=== PATIENT | female | born 1980 | race Caucasian/White ===

== ENCOUNTER 2017-03-10 15:09 | Emergency (ER) | payer MEDICAID ==
--- NOTE | 2017-03-10 15:31 | ER Document Report ---
ED Medical Screen (RME) - General Chief Complaint: L flank pain Stated Complaint: FLANK PAIN Time Seen by Provider: 03/10/17 15:27 Mode of Arrival: Ambulatory Information source: Patient Notes: 37-year-old female presents with complaints of left flank pain since last night. Patient denies a history of pancreatitis admits to drinking one day prior the pain start Patient denies any urinary complaints I have greeted and performed a rapid initial assessment of this patient. A comprehensive ED assessment and evaluation of the patient, analysis of test results and completion of the medical decision making process will be conducted by additional ED providers. PHYSICAL EXAMINATION: GENERAL: Well-appearing, well-nourished and in no acute distress. HEAD: Atraumatic, normocephalic. EYES: Pupils equal round extraocular movements intact, conjunctiva are normal. ENT: Nares patent NECK: Normal range of motion LUNGS: No respiratory distress Musculoskeletal: Normal range of motion NEUROLOGICAL: Normal speech, normal gait. PSYCH: Normal mood, normal affect. SKIN: Surgical incision left mid axillary TRAVEL OUTSIDE OF THE [place] IN LAST 30 DAYS: No - Related Data Allergies/Adverse Reactions: acetaminophen [From NyQuil] Allergy (Verified 03/10/17 15:30) dextromethorphan [From NyQuil] Allergy (Verified 03/10/17 15:30) diphenhydramine [From Benadryl] Allergy (Verified 03/10/17 15:30) doxylamine [From NyQuil] Allergy (Verified 03/10/17 15:30) ketorolac [From Toradol] Allergy (Verified 03/10/17 15:30) pseudoephedrine [From NyQuil] Allergy (Verified 03/10/17 15:30) Past Medical History - Social History Chew tobacco use (# tins/day): No Frequency of alcohol use: Occasional Drug Abuse: None Neurological Medical History: Reports: Hx Migraine Renal/ Medical History: Denies: Hx Peritoneal Dialysis Past Surgical History: Reports: Hx Orthopedic Surgery - Immunizations Hx Diphtheria, Pertussis, Tetanus Vaccination: No Physical Exam - Vital signs Vitals: Temp Pulse Resp BP Pulse Ox 98.3 F 113 H 20 141/78 H 97 03/10/17 15:17 03/10/17 15:17 03/10/17 15:17 03/10/17 15:17 03/10/17 15:17 Course - Vital Signs Vital signs: Temp Pulse Resp BP Pulse Ox 98.3 F 113 H 20 141/78 H 97 03/10/17 15:17 03/10/17 15:17 03/10/17 15:17 03/10/17 15:17 03/10/17 15:17
[2017-03-10 15:53] LABS: APPEARANCE,URINE CLEAR; BILIRUBIN,URINE NEGATIVE (NEGATIVE); GLUCOSE, URINE NEGATIVE (NEGATIVE); KETONES,URINE NEGATIVE (NEGATIVE); LEUKOCYTE ESTERASE,URINE NEGATIVE (NEGATIVE); NITRITE,URINE NEGATIVE (NEGATIVE); PROTEIN,URINE NEGATIVE (NEGATIVE); URINE SPECIFIC GRAVITY 1.003; UROBILINOGEN,URINE NEGATIVE mg/dL (<2.0)
[2017-03-10 16:03] LABS: ABSOLUTE BASOPHILS # (AUTO) 0.1 10^3/uL (0.0-0.2); ABSOLUTE EOSINOPHILS # (AUTO) 0.4 10^3/uL (0.0-0.6); ABSOLUTE LYMPHOCYTES (AUTO) 2.2 10^3/uL (0.5-4.7); ABSOLUTE MONOCYTES (AUTO) 0.8 10^3/uL (0.1-1.4); ABSOLUTE NEUT (AUTO) 6.3 10^3/uL (1.7-8.2); BASOPHILS % (AUTO) 1.1 % (0-2); EOSINOPHILS % (AUTO) 4.5 % (0-6); HEMATOCRIT 38.3 % (36.0-47.0); HEMOGLOBIN 13.5 g/dL (12.0-15.5); HGB HCT DIFFERENCE 2.2; LYMPHOCYTES % (AUTO) 22.5 % (13-45); MEAN CORPUSCULAR HEMOGLOBIN 32.7 pg (27.0-33.4); MEAN CORPUSCULAR HGB CONC 35.1 g/dL (32.0-36.0); MEAN CORPUSCULAR VOLUME 93 fl (80-97); MONOCYTES % (AUTO) 7.7 % (3-13); RED BLOOD COUNT 4.11 10^6/uL (3.72-5.28); RED CELL DISTRIBUTION WIDTH 14.3 % (11.5-14.0); SEGMENTED NEUTROPHILS % (AUTO) 64.2 % (42-78); WHITE BLOOD COUNT 9.9 10^3/uL (4.0-10.5)
[2017-03-10] MEDS ORDERED: MORPHINE SULFATE 10 MG/ML INJ IV PRN (16:13)
[2017-03-10] MEDS ORDERED: ONDANSETRON HCL INJ/PF 4 MG/2 ML SDV IV ONE (16:13)
--- NOTE | 2017-03-10 16:13 | ER Document Report ---
ED General - General Chief Complaint: L flank pain Stated Complaint: FLANK PAIN Time Seen by Provider: 03/10/17 15:27 Mode of Arrival: Ambulatory Information source: Patient Notes: This is a 37-year-old female with a history of cervical disc disease, COPD, GERD , anxiety. The patient presents to the emergency room with left upper quadrant pain, nausea, intermittent diarrhea and vomiting. Patient also states that the pain is worse with deep inspiration. She is a smoker and smokes approximately a half a pack per day. TRAVEL OUTSIDE OF THE [place] IN LAST 30 DAYS: No - HPI Onset: Last week Onset/Duration: Gradual Quality of pain: Dull Severity: Moderate Pain Level: 4 Associated symptoms: Diarrhea, Nausea, Vomiting, Shortness of breath. denies: Chest pain, Fever Exacerbated by: Deep breathing Relieved by: Denies Similar symptoms previously: Yes Recently seen / treated by doctor: Yes - Related Data Allergies/Adverse Reactions: acetaminophen [From NyQuil] Allergy (Verified 03/10/17 15:30) dextromethorphan [From NyQuil] Allergy (Verified 03/10/17 15:30) diphenhydramine [From Benadryl] Allergy (Verified 03/10/17 15:30) doxylamine [From NyQuil] Allergy (Verified 03/10/17 15:30) ketorolac [From Toradol] Allergy (Verified 03/10/17 15:30) pseudoephedrine [From NyQuil] Allergy (Verified 03/10/17 15:30) Home Medications: Current Home Medications Alprazolam [Xanax 0.5 mg Tablet] 0.5 mg PO PRN PRN 03/10/17 [History] Budesonide/Formoterol Fumarate [Symbicort HFA 160-4.5 mcg Inhaler 6 gm] 2 puff IH BID 03/10/17 [History] Bupropion HCl [Bupropion Xl] 300 mg PO QAM 03/10/17 [History] Past Medical History - General Information source: Patient - Social History Smoking Status: Current Every Day Smoker Cigarette use (# per day): Yes - 1 pack per day Chew tobacco use (# tins/day): No Smoking Education Provided: Yes - 5 minutes Frequency of alcohol use: Occasional Drug Abuse: None Lives with: Family Family History: Reviewed & Not Pertinent Patient has suicidal ideation: No Patient has homicidal ideation: No - Past Medical History Cardiac Medical History: Reports: None Pulmonary Medical History: Reports: Hx COPD Neurological Medical History: Reports: Hx Migraine Endocrine Medical History: Reports: None Renal/ Medical History: Reports: None. Denies: Hx Peritoneal Dialysis Malignancy Medical History: Reports: None GI Medical History: Reports: None Musculoskeltal Medical History: Reports Other Skin Medical History: Reports None Psychiatric Medical History: Reports: None Past Surgical History: Reports: Hx Orthopedic Surgery - Immunizations Hx Diphtheria, Pertussis, Tetanus Vaccination: No Review of Systems - Review of Systems Constitutional: denies: Chills, Fever EENT: No symptoms reported Cardiovascular: No symptoms reported Respiratory: See HPI Gastrointestinal: See HPI Genitourinary: No symptoms reported Female Genitourinary: No symptoms reported Musculoskeletal: No symptoms reported Skin: No symptoms reported Hematologic/Lymphatic: No symptoms reported Neurological/Psychological: No symptoms reported Physical Exam - Vital signs Vitals: Temp Pulse Resp BP Pulse Ox 98.3 F 113 H 20 141/78 H 97 03/10/17 15:17 03/10/17 15:17 03/10/17 15:17 03/10/17 15:17 03/10/17 15:17 Notes: Physical exam: GENERAL: 37-year-old female, alert and oriented 3, no acute distress HEAD: Atraumatic, normocephalic. EYES: Pupils equal round and reactive to light, extraocular movements intact, sclera anicteric, conjunctiva are normal. ENT: TMs normal, nares patent, oropharynx clear without exudates. Moist mucous membranes. NECK: Normal range of motion, supple without lymphadenopathy or JVD. LUNGS: Breath sounds clear to auscultation bilaterally and equal. No wheezes rales or rhonchi. HEART: Regular rate and rhythm without murmurs, rubs or gallops. ABDOMEN: Soft, normoactive bowel sounds. No tenderness to palpation. No guarding, no rebound. No masses appreciated. EXTREMITIES: Normal range of motion, no pitting or edema. No clubbing or cyanosis. NEUROLOGICAL: Cranial nerves II through XII grossly intact. Normal speech, normal gait. PSYCH: Normal mood, normal affect. SKIN: Warm, Dry, normal turgor, no rashes or lesions noted. Course - Vital Signs Vital signs: Temp Pulse Resp BP Pulse Ox 97.8 F 84 18 137/75 H 99 03/10/17 20:37 03/10/17 20:37 03/10/17 20:37 03/10/17 20:37 03/10/17 20:37 - Laboratory Result Diagrams: 03/10/17 15:50 03/10/17 15:50 Laboratory results interpreted by me: 03/10/17 03/10/17 15:50 15:50 RDW 14.3 H Sodium 135.0 L - Diagnostic Test Radiology reviewed: Image reviewed, Reports reviewed - CTA of the chest shows no pulmonary emboli. CT of the abdomen is clear. Discharge - Discharge Clinical Impression: Pleurisy Condition: Stable Disposition: HOME, SELF-CARE Instructions: Pleurisy ([facility]) Additional Instructions: Recommendations: As we discussed, try to cut back and actually quit smoking altogether. Continue current medicines. Follow-up with Dr. Desir: Bring a copy of today's lab results, CT reports with you when you see Dr. Desir. Return to the emergency room for worsening pain, shortness of breath or any concerns or getting worse. Prescriptions: Hydromorphone HCl [Dilaudid 2 Mg Tablet] 2 mg PO Q6H PRN #20 tablet PRN Reason: for pain Referrals: BENJAMIN DESIR MD [Primary Care Provider] - Follow up as needed
[2017-03-10 16:29] LABS: ALANINE AMINOTRANSFERASE 28 U/L (9-52); ALBUMIN 4.4 g/dL (3.5-5.0); ALKALINE PHOSPHATASE 69 U/L (38-126); ANION GAP 9 (5-19); ASPARTATE AMINO TRANSFERASE 18 U/L (14-36); BILIRUBIN,DIRECT 0.4 mg/dL (0.0-0.4); BILIRUBIN,TOTAL 0.6 mg/dL (0.2-1.3); BLOOD UREA NITROGEN 11 mg/dL (7-20); CALCIUM 9.6 mg/dL (8.4-10.2); CARBON DIOXIDE 23 mmol/L (22-30); CHLORIDE 103 mmol/L (98-107); CREATININE RESULT 0.83 mg/dL (0.52-1.25); GLUCOSE 92 mg/dL (75-110); LIPASE 60.2 U/L (23-300); TOTAL PROTEIN 7.5 g/dL (6.3-8.2)
--- NOTE | 2017-03-10 17:58 | RADIOLOGY REPORT (SQ) ---
EXAM DESCRIPTION: CTA CHEST COMPLETED DATE/TIME: 03/10/2017 5:40 pm REASON FOR STUDY: luq pain, sob COMPARISON: None. TECHNIQUE: CT scan of the chest performed using helical scanning technique with dynamic intravenous contrast injection. Images reviewed with lung, soft tissue and bone windows. Reconstructed coronal and sagittal MPR images reviewed. Additional 3 dimensional post-processing performed to develop Maximal Intensity Projection images (HI P). All images stored on PACS. All CT scanners at this facility use dose modulation, iterative reconstruction, and/or weight based d osing when appropriate to reduce radiation dose to as low as reasonably achievable (ALARA). [facility]: Dose Right [facility]: CareDose [facility]: Dose Right [facility]: Teradose 4D [facility]: curated.by CONTRAST TYPE AND DOSE: contrast/concentration: Isovue 370.00 mg/ml; Total Contrast Delivered: 75.0 ml; Total Saline Delivered: 110.0 ml RENAL FUNCTION: Creatinine 0.83 RADIATION DOSE: Up-to-date CT equipment and radiation dose reduction techniques were employed. CTDIv ol: 15.6 - 21.4 mGy. DLP: 2357 mGy-cm. . LIMITATIONS: None. FINDINGS: LUNGS AND PLEURA: No masses, infiltrates, pneumothorax. No pleural effusions, calcificati ons. AORTA AND GREAT VESSELS: No aneurysm or dissection. HEART: No pericardial effusion. PULMONARY ARTERIES: No emboli visualized in the main pulmonary arteries or the segmental branches. HILAR AND MEDIASTINAL STRUCTURES: No identified masses or abnormal nodes. HARDWARE: None in the chest. UPPER ABDOMEN: See results under abdominal CT scan THYROID AND OTHER SOFT TISSUES: No masses. No adenopathy. BONES: No acute or significant finding. 3D MIPS: Confirm above findings. OTHER: No other significant finding. IMPRESSION: NORMAL CTA OF THE CHEST. NO PULMONARY EMBOLI. TECHNICAL DOCUMENTATION: JOB ID: [id number] Quality ID # [id number]: Final reports with documentation of one or more dose reduction techniques (e.g., Au tomated exposure control, adjustment of the mA and/or kV according to patient size, use of iterative reconstruction technique) 2010 [employer]- All Rights Reserved
--- NOTE | 2017-03-10 18:04 | RADIOLOGY REPORT (SQ) ---
EXAM DESCRIPTION: CT ABD/PELVIS WITH IV ONLY COMPLETED DATE/TIME: 03/10/2017 5:40 pm REASON FOR STUDY: abd pain COMPARISON: None. TECHNIQUE: CT scan of the abdomen and pelvis performed using helical scanning technique with dynamic intravenous contrast injection. No oral contrast. Images reviewed with lung, soft tissue, and bone windows. Reconstructed coronal and sagittal MPR images reviewed. Delayed images for evaluation of the urinary system also acquired. All images stored on PACS. All CT scanners at this facility use dose modulation, iterative reconstruction, and/or weight based d osing when appropriate to reduce radiation dose to as low as reasonably achievable (ALARA). [facility]: Dose Right [facility]: CareDose [facility]: Dose Right [facility]: Teradose 4D [facility]: ColdWatt CONTRAST TYPE AND DOSE: 75 mL Isovue 370 RENAL FUNCTION: None required. The patient is less than 50 years old. RADIATION DOSE: . LIMITATIONS: None. FINDINGS: LOWER CHEST: No significant findings. No nodules or infiltrates. LIVER: Normal size. No masses. No dilated ducts. SPLEEN: Normal size. No focal lesions. PANCREAS: No masses. No significant calcifications. No adjacent inflammation or peripancreatic fluid collections. Pancreatic duct not dilated. GALLBLADDER: No identified stones by CT criteria. No inflammatory changes to suggest cholecystitis. ADRENAL GLANDS: No significant masses or asymmetry. RIGHT KIDNEY AND URETER: No solid masses. No significant calcifications. No hydronephrosis or hyd roureter. LEFT KIDNEY AND URETER: No solid masses. No significant calcifications. No hydronephrosis or hydr oureter. AORTA AND VESSELS: No aneurysm. No dissection. Renal arteries, SMA, celiac without stenosis. RETROPERITONEUM: No retroperitoneal adenopathy, hemorrhage or masses. BOWEL AND PERITONEAL CAVITY: No masses or inflammatory changes. No free fluid or peritoneal masses. APPENDIX: Normal. PELVIS: No mass. No free fluid. Normal bladder. ABDOMINAL WALL: No masses. No hernias. BONES: No significant or acute findings. OTHER: No other significant finding. IMPRESSION: NO SIGNIFICANT OR ACUTE FINDING IN THE ABDOMEN OR PELVIS ON CT SCAN WITH IV CONTRAST. TECHNICAL DOCUMENTATION: JOB ID: [id number] Quality ID # [id number]: Final reports with documentation of one or more dose reduction techniques (e.g., Au tomated exposure control, adjustment of the mA and/or kV according to patient size, use of iterative reconstruction technique) 2010 [employer]- All Rights Reserved
[2017-03-10 20:39] VITALS: BP 137/75
== END 2017-03-10 20:37 | disposition home or self-care (01) ==
LOC: ER 15:09
DX: R09.1 Pleurisy (principal); J44.9 Chronic obstructive pulmonary disease, unspecified; R10.12 Left upper quadrant pain; R19.7 Diarrhea, unspecified; R11.2 Nausea with vomiting, unspecified; R06.02 Shortness of breath; F17.210 Nicotine dependence, cigarettes, uncomplicated; Z71.6 Tobacco abuse counseling; Z88.8 Allergy status to other drugs, medicaments and biological substances
CPT/HCPCS: 99284; 96374; 96375; 36415; 84702; 83690; 85025; 80053; 81001; 71275; 74177; J2270; J2405

== ENCOUNTER 2017-06-12 15:03 | Emergency (ER) | payer MEDICAID ==
[2017-06-12 15:07] VITALS: BP 126/90
[2017-06-12] MEDS ORDERED: CEPHALEXIN 500 MG CAPSULE PO ONE (15:17)
[2017-06-12] MEDS ORDERED: OXYCODONE HCL IR 5 MG TABLET PO ONE (15:18)
[2017-06-12] MEDS ORDERED: LIDOCAINE 1% INJ-PF (10 MG/ML) 30 ML SDV INJ ONE (15:18)
--- NOTE | 2017-06-12 15:18 | ER Document Report ---
ED Wound - General Chief Complaint: Laceration Stated Complaint: FINGER LACERATION Time Seen by Provider: 06/12/17 15:13 Notes: Patient is a 29-year-old female who presents with a laceration on the flexor surface of the right index finger. Patient states that she was moving a chair in her car to get caught on her finger. She states that she is sensation intact in the distal aspect of her finger in her tetanus is not up-to-date. TRAVEL OUTSIDE OF THE [place] IN LAST 30 DAYS: No - Related Data Allergies/Adverse Reactions: acetaminophen [From NyQuil] Allergy (Verified 03/10/17 15:30) dextromethorphan [From NyQuil] Allergy (Verified 03/10/17 15:30) diphenhydramine [From Benadryl] Allergy (Verified 03/10/17 15:30) doxylamine [From NyQuil] Allergy (Verified 03/10/17 15:30) ketorolac [From Toradol] Allergy (Verified 03/10/17 15:30) pseudoephedrine [From NyQuil] Allergy (Verified 03/10/17 15:30) Past Medical History - Social History Smoking Status: Never Smoker Family History: Reviewed & Not Pertinent Pulmonary Medical History: Reports: Hx COPD Neurological Medical History: Reports: Hx Migraine Renal/ Medical History: Denies: Hx Peritoneal Dialysis Past Surgical History: Reports: Hx Orthopedic Surgery - Immunizations Hx Diphtheria, Pertussis, Tetanus Vaccination: No Review of Systems - Review of Systems Constitutional: No symptoms reported Musculoskeletal: See HPI Skin: See HPI -: Yes All other systems reviewed and negative Physical Exam - Vital signs Vitals: Temp Pulse Resp BP Pulse Ox 97.5 F 98 20 126/90 H 98 06/12/17 15:04 06/12/17 15:04 06/12/17 15:04 06/12/17 15:04 06/12/17 15:04 - Notes Notes: PHYSICAL EXAM GENERAL: Alert, interacts well. EXTREMITIES: Moves all 4 extremities spontaneously. No edema, radial and dorsalis pedis pulses 2/4 bilaterally. No cyanosis. Cap refill less than 2 seconds NEUROLOGICAL: Alert and oriented x4. Normal speech. PSYCH: Normal affect, normal mood. SKIN: Warm, dry, normal turgor. 5 cm rounded incision on the flexor surface of the fat pad of the right index finger that is involved into the subcutaneous fat with no active bleeding. Range of motion intact Course - Re-evaluation Re-evalutation: 06/12/17 17:16 Patient is a 37-year-old female who is hemodynamically stable, no acute distress afebrile. Laceration was closed using 6-0 nylon suture. No evidence of tuft fracture noted on x-ray. Patient placed in a splint for protection of her sutures. Patient educated on wound care and to follow-up with primary care in 8-10 days for suture removal. Patient agr tetanus status updated - Vital Signs Vital signs: Temp Pulse Resp BP Pulse Ox 97.5 F 98 20 126/90 H 100 06/12/17 15:06 06/12/17 15:06 06/12/17 15:04 06/12/17 15:06 06/12/17 15:06 Procedures - Laceration/Wound Repair Right 2nd digit Wound length (cm): 5 Wound's Depth, Shape: Into muscle, Flap Laceration pre-procedure: Sterile PPE donned, Betadine prep applied, Sterile drapes applied Anesthetic type: 1% Lidocaine Volume Anesthetic (mLs): 8 - digital block Wound explored: Clean, No foreign body removed Irrigated w/ Saline (mLs): 250 Wound Repaired With: Sutures Suture Size/Type: 6:0, Nylon Number of Sutures: 7 Layer Closure?: No Post-procedure wound care: Sterile dressing applied, Splint applied Post-procedure NV exam normal: Yes Complications: No Discharge - Discharge Clinical Impression: Laceration Condition: Good Disposition: HOME, SELF-CARE Additional Instructions: LACERATION CARE: Your laceration has been sutured to keep the skin edges aligned during healing. The time of suture removal depends on the nature and location of your cut. Please follow the care instructions the doctor has outlined for you and return for further care, according to the schedule you've been given. Keep the wound and dressing clean. Unless you were told otherwise, you may shower daily, blotting the wound dry with a clean, unused towel. At other times, If the dressing gets wet or blood soaked, remove it and blot the wound dry, then reapply a new dressing. Unless you were instructed otherwise, dressings should be changed at least daily. If any signs of infection occur (swelling, redness, drainage, increasing tenderness, red streaks, tender lumps in the armpit or groin above the laceration, or fever), see the doctor immediately. SOAP CLEANSING: Gently wash the wound daily using a mild soap (like Ivory, Phisoderm, Neutrogena). Use warm water, rubbing gently until all debris, ooze, and crusting have been washed from the wound. Allow to dry briefly (about 10 minutes) after cleaning. Repeat this cleansing at least three times a day for the first two days and then once or twice a day. ANTIBIOTIC OINTMENT PROTECTION: Your wounds are such that dressing them is not practical or optional. After cleansing, you should apply a thin coating of antibiotic ointment ( Bacitracin, not Neosporin) to the wounds at least three times daily. This lessens infection risk, and may decrease the amount of scarring. Use a q-tip or dull butter knife, not your finger, to apply this ointment. Any debris or ooze which builds up in the ointment should be gently rubbed off with a sterile gauze pad. Harder crusting may need to be gently scrubbed off with a clean wash cloth with soap and warm water, perhaps applying a warm, wet wash cloth to the wound for ten minutes first. Development of redness, severe itching, or blistering may mean allergy to the ointment. See the doctor. TETANUS IMMUNIZATION GIVEN: You have been given an immunization against tetanus. Please record this in your records. In general, a booster is needed only once every 10 years. The tetanus shot protects against tetanus or "lockjaw," which is a complication of certain wound infections (the tetanus shot cannot protect against the actual infection). The immunization site may become warm and red due to local reaction. If this occurs, apply warm compresses and take aspirin or ibuprofen to reduce inflammation and discomfort. Return for evaluation if the reaction becomes severe. PROPHYLACTIC ANTIBIOTIC: The antibiotics which have been prescribed are designed to decrease the risk of infection. Only certain types of wounds benefit from this -- the typical cut, scrape, or burn DOES NOT require antibiotics. Of course, infection can still occur despite the use of prophylactic antibiotics. Your wound will heal with less chance of an infectious complication if you take the medication as directed. The most important dose is the FIRST dose, so don't delay filling the prescription! ORAL NARCOTIC MEDICATION: You have been given a prescription for pain control. This medication is a narcotic. It's best taken with food, as nausea can result if taken on an empty stomach. Don't operate machinery or drive within six hours of taking this medication. Do not combine this medicine with alcohol, or with any medication which can cause sedation (such as cold tablets or sleeping pills) unless you get permission from the physician. Narcotics tend to cause constipation. If possible, drink plenty of fluids and eat a diet high in fiber and fruits. FOLLOW-UP CARE: Your sutures should be removed in 8-10 days. To facilitate a timely removal of your sutures, you may return to the Emergency Department at [facility]. You do not need to call for an appointment, but the best time to come in for suture removal is early in the morning. If you have been referred to another physician for follow-up care, call that physicians office for an appointment as you were instructed. If you experience a significant change in your laceration, or if you are concerned there may be an infection (swelling, redness, drainage, increasing tenderness, red streaks, tender lumps in the armpit or groin above the laceration, or fever) , return to the Emergency Department immediately re-evaluation. Prescriptions: Cephalexin Monohydrate [Keflex 500 mg Capsule] 500 mg PO Q6H 5 Days capsule Oxycodone HCl [Oxycontin Ir 5 Mg Tablet] 1 - 2 mg PO Q4H PRN #10 tablet PRN Reason: For Pain Referrals: BENJAMIN FISH MD [Primary Care Provider] - Follow up in 1 week
--- NOTE | 2017-06-12 15:51 | RADIOLOGY REPORT (SQ) ---
EXAM DESCRIPTION: FINGER RIGHT COMPLETED DATE/TIME: 06/12/2017 3:43 pm REASON FOR STUDY: laceration flexor surface, eval for tuft fx COMPARISON: None. NUMBER OF VIEWS: Three views. TECHNIQUE: AP, lateral, and oblique images acquired of the right second finger. LIMITATIONS: None. FINDINGS: MINERALIZATION: Normal. BONES: No acute fracture or dislocation. No worrisome bone lesions. SOFT TISSUES: No foreign body. Tissue around the seconds digit. OTHER: No other significant finding. IMPRESSION: No acute fracture. COMMENT: SITE OF TRAUMA/COMPLAINT MARKED/STAMP COMPLETED: YES. TECHNICAL DOCUMENTATION: JOB ID: [id number] [employer]- All Rights Reserved
[2017-06-12] MEDS ORDERED: DIPH/PERTUSS(ACELL)/TETANUS VAC/PF 0.5 ML SYR (>=10YO) IM ONE (17:33)
== END 2017-06-12 17:51 | disposition home or self-care (01) ==
LOC: ER 15:03
PROC: 0HQFXZZ Repair Right Hand Skin, External Approach (ICD-10-PCS; principal; 2017-06-12)
DX: S61.210A Laceration without foreign body of right index finger without damage to nail, initial encounter (principal); W23.0XXA Caught, crushed, jammed, or pinched between moving objects, initial encounter
CPT/HCPCS: 99283; 90471; 73140; 90715; 12002; J3490 ×2

== ENCOUNTER 2017-08-09 13:06 | Emergency (ER) | payer MEDICAID ==
[2017-08-09 13:26] VITALS: BP 117/87
[2017-08-09] MEDS ORDERED: PROCHLORPERAZINE MALEATE 10 MG TABLET PO ONE (14:16)
[2017-08-09] MEDS ORDERED: ONDANSETRON HCL 8 MG TABLET PO ONE (14:16)
--- NOTE | 2017-08-09 14:23 | ER Document Report ---
HPI - HPI Pain Level: 3 Notes: Patient is a 37-year-old female presents to the ED complaining of a possible insect bite to her right lateral cheek 2 days that has become painful and more swollen. Patient has not applied any creams or medicine to the wound on the face. Patient states that she also has associated mild migraine with intermittent dizziness. Patient states that she has a history of migraines and that this is similar to those in the past. Patient is still eating and drinking without any difficulties. She is urinating normally and having normal bowel movements. Patient will have occasional nausea because of the headache, but does not have any vomiting. She has not noticed any obvious abscess, red streaks, or purulent discharge. Denies any fever, head injury, neck pain, changes in vision/speech/mentation/hearing, URI, sore throat, chest pain, palpitations, syncope, cough, shortness of breath, wheeze, dyspnea, abdominal pain, vomiting/diarrhea, urinary retention, dysuria, hematuria, loss of control of bowel or bladder, numbness/tingling, saddle anesthesia, muscle paralysis/ weakness, or rash. - ROS Notes: REVIEW OF SYSTEMS: CONSTITUTIONAL : Denies fever, chills, or sweats. Denies recent illness. EENT: Denies eye, ear, throat, or mouth pain or symptoms. Denies nasal or sinus congestion or discharge. Denies throat, tongue, or mouth swelling or difficulty swallowing. CARDIOVASCULAR: Denies chest pain. Denies palpitations or racing or irregular heart beat. Denies ankle edema. RESPIRATORY: Denies cough, cold, or chest congestion. Denies shortness of breath, difficulty breathing, or wheezing. GASTROINTESTINAL: see hpi. Denies abdominal pain or distention. Denies vomiting, or diarrhea. Denies blood in vomitus, stools, or per rectum. Denies black, tarry stools. Denies constipation. GENITOURINARY: Denies difficulty urinating, painful urination, burning, frequency, blood in urine, or discharge. MUSCULOSKELETAL: Denies back or neck pain or stiffness. Denies joint pain or swelling. SKIN: see hpi NEUROLOGICAL: see hpi. Denies confusion or altered mental status. Denies passing out or loss of consciousness. Denies weakness or paralysis or loss of use of either side. Denies problems with gait or speech. Denies sensory loss, numbness, or tingling. Denies seizures. PSYCHIATRIC: Denies anxiety or stress. Denies depression, suicidal ideation, or homicidal ideation. ALL OTHER SYSTEMS REVIEWED AND NEGATIVE. Dictation was performed using [employer] voice recognition software Past Medical History - Social History Smoking Status: Unknown if Ever Smoked Family History: Reviewed & Not Pertinent Pulmonary Medical History: Reports: Hx COPD Neurological Medical History: Reports: Hx Migraine Renal/ Medical History: Denies: Hx Peritoneal Dialysis Past Surgical History: Reports: Hx Orthopedic Surgery - Immunizations Hx Diphtheria, Pertussis, Tetanus Vaccination: No Vertical Provider Document - CONSTITUTIONAL Agree With Documented VS: Yes Notes: PHYSICAL EXAMINATION: GENERAL: Well-appearing, well-nourished and in no acute distress. A&Ox4. Answers questions appropriately. HEAD: Atraumatic, normocephalic. EYES: Pupils equal round and reactive to light, extraocular movements intact, sclera anicteric, conjunctiva are normal. ENT: EAC clear b/l. TM's intact b/l without erythema, fluid, or perforation. Nares patent and without discharge. oropharynx clear without exudates. No tonsilar hypertrophy or erythema. Moist mucous membranes. No sinus tenderness. NECK: Normal range of motion, supple without lymphadenopathy. No rigidity/ meningismus. LUNGS: Breath sounds clear to auscultation bilaterally and equal. No wheezes rales or rhonchi. HEART: Regular rate and rhythm without murmurs, rubs, gallops. ABDOMEN: Soft, nontender, nondistended abdomen. No guarding, no rebound. No masses appreciated. Normal bowel sounds present. No CVA tenderness bilaterally. Musculoskeletal: FROM to passive/active. Strength 5+/5. No focal deficits. Extremities: No cyanosis, clubbing, or edema b/l. Peripheral pulses 2+. Capillary refill less than 3 seconds. NEUROLOGICAL: MMSE intact. NIH 0. GCS 15. Cranial nerves grossly intact. Normal speech, normal gait. Normal sensory, motor exams. Pronator drift negative. TONY's intact. Finger:nose, heel:delgado intact. PSYCH: Normal mood, normal affect. SKIN: + mild erythema to the right lateral cheek with minimal induration and tenderness. no obvious abscess, streaks, or purulence. - INFECTION CONTROL TRAVEL OUTSIDE OF THE [place] IN LAST 30 DAYS: No - RESPIRATORY O2 Sat by Pulse Oximetry: 97 Course - Re-evaluation Re-evalutation: 08/09/17 14:25 Patient is an afebrile, well-hydrated, 37-year-old female who presents the ED with a mild cellulitis to the right lateral cheek and headache, suspect migraine ("mild" per patient). Vitals are stable. PE is otherwise unremarkable for any focal neurological deficits. Patient was given Compazine and Zofran p.o. to help with symptoms, pt has allergies to toradol and benadryl. Patient's headache is not uncommon for her and she has no noticeable neurological findings. Low suspicion for any acute glaucoma, temporal arteritis , meningitis, intracranial hemorrhage, ischemic stroke, sepsis, or fracture at this time. Patient is aware that her condition can change from initial presentation and that she needs to monitor symptoms closely for any acute changes. I will send her home with a prescription for clindamycin to take as directed. Recommend conservative measures for symptoms otherwise. Recheck with your PCM in 3-5 days. Return to the ED with any worsening/concerning symptoms otherwise as reviewed discharge. Pt is in agreement. Pt instructed to return with worsening Headache or other worsening symptoms as noted above. - Vital Signs Vital signs: Temp Pulse Resp BP Pulse Ox 98.4 F 101 H 18 117/87 H 97 08/09/17 13:24 08/09/17 13:24 08/09/17 13:24 08/09/17 13:24 08/09/17 13:24 Discharge - Discharge Clinical Impression: Cellulitis Qualifiers: Site of cellulitis: face Qualified Code(s): L03.211 - Cellulitis of face Disposition: HOME, SELF-CARE Instructions: Cellulitis ([facility]), Clindamycin ([facility]) Additional Instructions: Keep the skin clean Wash with soap and water Tylenol/ibuprofen if needed Triple antibiotic ointment daily Take medication as directed Monitor for any worsening symptoms Recheck with your PCM in 3-5 days Return to the ED with any worsening symptoms and/or development of fever, headache, chest pain, palpitations, syncope, shortness of breath, trouble breathing, abdominal pain, n/v/d, abscess, purulent discharge, red streaks, worsening swelling, or other worsening symptoms that are concerning to you. Prescriptions: Clindamycin HCl [Cleocin 300 mg Capsule] 300 mg PO TID #30 capsule Forms: Elevated Blood Pressure Referrals: [facility] [Provider Group] - Follow up as needed [facility] [Provider Group] - Follow up as needed
== END 2017-08-09 14:40 | disposition home or self-care (01) ==
LOC: ER 13:06
DX: L03.211 Cellulitis of face (principal)
CPT/HCPCS: 99281; S0119; S0183

== ENCOUNTER → 2017-09-24 | Outpatient (CLI) | payer MEDICAID ==
--- NOTE | 2017-09-24 20:57 | RADIOLOGY REPORT (SQ) ---
EXAM DESCRIPTION: CERV SP 3 VIEW OR LESS COMPLETED DATE/TIME: 09/24/2017 6:32 pm REASON FOR STUDY: CERVICAL RADICULOPATHY (FLEX/EXT ONLY) COMPARISON: None. NUMBER OF VIEWS: Three view. TECHNIQUE: Lateral views of the cervical spine with flexion and extension. LIMITATIONS: None. FINDINGS: MINERALIZATION: Normal. ALIGNMENT: Anatomic. FLEXION/EXTENSION: No instability. VERTEBRAE: Vertebral bodies of normal height. DISCS: No significant osteophytes or sclerosis. Disc height maintained. LATERAL AND POSTERIOR ELEMENTS: Facets, lateral masses, and spinous processes without significant fin dings. HARDWARE: Anterior hardware at C5-C6 and C6-C7. SOFT TISSUES: No masses or calcifications. Lung apices clear. OTHER: No other significant finding. IMPRESSION: SURGICAL CHANGES WITH HARDWARE. NO INSTABILITY ON FLEXION/EXTENSION. TECHNICAL DOCUMENTATION: JOB ID: [id number] [employer]- All Rights Reserved Reading location - IP/workstation name: [email or web address]
== END ==
LOC: RAD 17:31
PROVIDERS: ATTEND Specialist
DX: M54.12 Radiculopathy, cervical region (principal)
CPT/HCPCS: 72040

== ENCOUNTER 2018-01-05 19:06 | Emergency (ER) | payer MEDICAID ==
[2018-01-05] MEDS ORDERED: NORMAL SALINE 1000 ML 1,000 ML IV ONE ×2 (20:17→20:27)
--- NOTE | 2018-01-05 20:20 | ER Document Report ---
ED General - General Chief Complaint: Abdominal Pain Stated Complaint: ABDOMINAL PAIN Time Seen by Provider: 01/05/18 19:59 Mode of Arrival: Ambulatory Information source: Patient Notes: 37-year-old female presents to the emergency room with pain in the back of her neck and the front of the neck. She does have history of surgery in the past with fusion. She also has a history of recent strep throat which was treated with 3 rounds of antibiotics. Patient also complains of abdominal pain as well as right knee pain. Patient denies any fever, rashes. She denies any nausea or vomiting. She states she has had decreased p.o. intake and she feels dehydrated. TRAVEL OUTSIDE OF THE [place] IN LAST 30 DAYS: No - HPI Onset: Last week Onset/Duration: Gradual Quality of pain: Dull Severity: Mild Pain Level: 1 Associated symptoms: Sore throat. denies: Chest pain, Fever, Shortness of breath Exacerbated by: Movement Relieved by: Denies Similar symptoms previously: Yes Recently seen / treated by doctor: Yes - Related Data Allergies/Adverse Reactions: acetaminophen [From NyQuil] Allergy (Verified 08/09/17 14:47) dextromethorphan [From NyQuil] Allergy (Verified 08/09/17 14:47) diphenhydramine [From Benadryl] Allergy (Verified 08/09/17 14:47) doxylamine [From NyQuil] Allergy (Verified 08/09/17 14:47) ketorolac [From Toradol] Allergy (Verified 08/09/17 14:47) pseudoephedrine [From NyQuil] Allergy (Verified 08/09/17 14:47) Past Medical History - General Information source: Patient - Social History Smoking Status: Current Every Day Smoker Cigarette use (# per day): Yes - Half pack per day Chew tobacco use (# tins/day): No Frequency of alcohol use: Occasional Drug Abuse: None Lives with: Family Family History: Reviewed & Not Pertinent Patient has suicidal ideation: No Patient has homicidal ideation: No - Past Medical History Cardiac Medical History: Reports: None Pulmonary Medical History: Reports: Hx COPD Neurological Medical History: Reports: Hx Migraine Renal/ Medical History: Reports: None. Denies: Hx Peritoneal Dialysis Malignancy Medical History: Reports: None GI Medical History: Reports: None Musculoskeltal Medical History: Reports None Skin Medical History: Reports None Psychiatric Medical History: Reports: None Traumatic Medical History: Reports: None Infectious Medical History: Reports: None Past Surgical History: Reports: Hx Orthopedic Surgery - Immunizations Hx Diphtheria, Pertussis, Tetanus Vaccination: No Review of Systems - Review of Systems Constitutional: denies: Chills, Fever EENT: See HPI Cardiovascular: No symptoms reported Respiratory: No symptoms reported Gastrointestinal: See HPI Genitourinary: No symptoms reported Female Genitourinary: No symptoms reported Musculoskeletal: See HPI Skin: No symptoms reported Hematologic/Lymphatic: No symptoms reported Neurological/Psychological: No symptoms reported Physical Exam - Vital signs Vitals: Temp Pulse Resp BP Pulse Ox 99.2 F 89 20 127/82 H 97 01/05/18 19:19 01/05/18 19:19 01/05/18 19:19 01/05/18 19:19 01/05/18 19:19 Notes: Physical exam: GENERAL: 37-year-old female, alert and oriented 3, no acute distress HEAD: Atraumatic, normocephalic. EYES: Pupils equal round and reactive to light, extraocular movements intact, sclera anicteric, conjunctiva are normal. ENT: TMs normal, nares patent, oropharynx clear mildly erythematous without exudates. There is no swelling. There is no fluctuance. There is no significant uvular deviation. Moist mucous membranes. NECK: Normal range of motion, supple without obvious mass or stridor. LUNGS: Breath sounds clear to auscultation bilaterally and equal. No wheezes rales or rhonchi. HEART: Regular rate and rhythm without murmurs, rubs or gallops. ABDOMEN: Soft, normoactive bowel sounds. No tenderness to palpation. No guarding, no rebound. No masses appreciated. EXTREMITIES: Normal range of motion, no pitting or edema. No clubbing or cyanosis. She has pain with range of motion of the right knee, there is no laxity, no significant swelling, no erythema or warmth. NEUROLOGICAL: Cranial nerves II through XII grossly intact. Normal speech, moving all extremities. PSYCH: Normal mood, normal affect. SKIN: Warm, Dry, normal turgor, no rashes or lesions noted. Course - Re-evaluation Re-evalutation: 01/05/18 23:10 Note: Patient has multiple complaints. She was treated for a strep throat with multiple rounds of antibiotics. Most likely, she had some sort of viral syndrome. Her symptoms have probably persisted because of her smoking. I have discussed this with her and recommended she stop smoking. Did do a CT of the neck given her recent history and that shows no evidence of deep-seated infections or swelling. As far as her abdomen: Her abdomen is soft and nontender and there are no masses. There is no evidence of any acute pathology requiring surgery. As far as her right knee: There is no laxity of the joint and no evidence of infection. Patient probably does have some arthritis of the joint or potentially an internal derangement (like a meniscus). I discussed this with her and recommended she follow-up with the pain specialist initially for the possibility of physical therapy or joint injection. The patient did complain of decreased p.o. intake and she felt like she was dehydrated. I did give her some IV fluids and check some electrolytes and hemoglobin studies and they were normal. I have given the patient a copy of today's lab results as well as the CT report so that she could follow-up with her primary care doctor. - Vital Signs Vital signs: Temp Pulse Resp BP Pulse Ox 99.2 F 89 20 127/82 H 97 01/05/18 19:19 01/05/18 19:19 01/05/18 19:19 01/05/18 19:19 01/05/18 19:19 - Laboratory Result Diagrams: 01/05/18 20:35 01/05/18 20:35 Laboratory results interpreted by me: 01/05/18 20:35 RDW 14.3 H - Diagnostic Test Radiology reviewed: Image reviewed, Reports reviewed - CT of the neck soft tissues shows no deep seeded infections. Discharge - Discharge Clinical Impression: Neck pain, Right knee pain Condition: Stable Disposition: HOME, SELF-CARE Additional Instructions: As we discussed, CT of the neck showed no lesions in the soft tissues. There was no evidence of infection. Your labs showed a normal white count, good kidney function tests, normal sugar , normal liver function tests and good electrolytes. I do think you should follow-up with your pain specialist as far as the right knee pain. There is no instability on exam and you could inquire about a local joint injection or physical therapy. Otherwise follow-up with your primary care doctor and bring a copy of these labs as well as a CT with you when you go. Return to the emergency room for any worsening pain, difficulty swallowing, concerns or getting worse. Referrals: LOCALMD,NO [NO LOCAL MD] - Follow up as needed
[2018-01-05 20:44] LABS: ABSOLUTE EOSINOPHILS # (AUTO) 0.2 10^3/uL (0.0-0.6); ABSOLUTE MONOCYTES (AUTO) 0.4 10^3/uL (0.1-1.4); ABSOLUTE NEUT (AUTO) 2.3 10^3/uL (1.7-8.2); EOSINOPHILS % (AUTO) 3.5 % (0-6); HEMATOCRIT 39.3 % (36.0-47.0); HEMOGLOBIN 13.5 g/dL (12.0-15.5); LYMPHOCYTES % (AUTO) 40.5 % (13-45); MEAN CORPUSCULAR HEMOGLOBIN 32.2 pg (27.0-33.4); MEAN CORPUSCULAR HGB CONC 34.4 g/dL (32.0-36.0); MEAN CORPUSCULAR VOLUME 94 fl (80-97); MONOCYTES % (AUTO) 8.4 % (3-13); PLATELET COUNT 386 10^3/uL (150-450); RED CELL DISTRIBUTION WIDTH 14.3 % (11.5-14.0); SEGMENTED NEUTROPHILS % (AUTO) 46.6 % (42-78); TOTAL CELLS COUNTED % (AUTO) 100 %
[2018-01-05 21:05] LABS: ALANINE AMINOTRANSFERASE 34 U/L (9-52); ALBUMIN 4.1 g/dL (3.5-5.0); ALKALINE PHOSPHATASE 55 U/L (38-126); ANION GAP 12 (5-19); ASPARTATE AMINO TRANSFERASE 27 U/L (14-36); BILIRUBIN,DIRECT 0.3 mg/dL (0.0-0.4); BILIRUBIN,TOTAL 0.3 mg/dL (0.2-1.3); BLOOD UREA NITROGEN 7 mg/dL (7-20); CALCIUM 9.5 mg/dL (8.4-10.2); CARBON DIOXIDE 24 mmol/L (22-30); CHLORIDE 106 mmol/L (98-107); GLUCOSE 80 mg/dL (75-110); POTASSIUM 4.2 mmol/L (3.6-5.0); SODIUM 141.5 mmol/L (137-145); TOTAL PROTEIN 7.1 g/dL (6.3-8.2)
--- NOTE | 2018-01-05 22:21 | RADIOLOGY REPORT (SQ) ---
EXAM DESCRIPTION: CT SOFT TISSUE NECK WITH COMPLETED DATE/TIME: 01/05/2018 10:08 pm REASON FOR STUDY: neck pain COMPARISON: None. TECHNIQUE: Post IV contrasted scanning from skull base through lung apices with review of bone, soft tissue and lung windows. Reconstructed coronal and sagittal MPR images reviewed. All images stored on PACS. All CT scanners at this facility use dose modulation, iterative reconstruction, and/or weight based d osing when appropriate to reduce radiation dose to as low as reasonably achievable (ALARA). [facility]: Dose Right [facility]: CareDose [facility]: Dose Right [facility]: Teradose 4D [facility]: Simparel CONTRAST TYPE AND DOSE: contrast/concentration: Isovue 370.00 mg/ml; Total Contrast Delivered: 75.0 ml; Total Saline Delivered: 55.0 ml RENAL FUNCTION: BUN 7 creatinine 0.84. RADIATION DOSE: CT Rad equipment meets quality standard of care and radiation dose reduction techniq ues were employed. CTDIvol: 17.6 mGy. DLP: 611 mGy-cm. . LIMITATIONS: None. FINDINGS: SKULL BASE: Intact. MAJOR SALIVARY GLANDS: No solid or cystic masses. No inflammatory changes. LYMPHADENOPATHY: No adenopathy. MUCOSAL MASSES OR ASYMMETRY: No mucosal masses or asymmetry. LARYNX/CORDS: No abnormal findings. VASCULAR STRUCTURES: The major vessels are patent. LUNG APICES: Clear. BONES: Intact. Hardware in the lower cervical spine. THYROID: Normal size. No masses. PARANASAL SINUSES: Clear. OTHER: No other significant finding. IMPRESSION: NO SIGNIFICANT FINDING IN THE SOFT TISSUES OF THE NECK. TECHNICAL DOCUMENTATION: JOB ID: [id number] Quality ID # [id number]: Final reports with documentation of one or more dose reduction techniques (e.g., Au tomated exposure control, adjustment of the mA and/or kV according to patient size, use of iterative reconstruction technique) 2010 [employer]- All Rights Reserved Reading location - IP/workstation name: [email or web address]
[2018-01-05 23:15] VITALS: BP 122/81
== END 2018-01-05 23:13 | disposition home or self-care (01) ==
LOC: ER 19:06
DX: M25.561 Pain in right knee (principal); M54.2 Cervicalgia; R10.9 Unspecified abdominal pain; F17.210 Nicotine dependence, cigarettes, uncomplicated; J44.9 Chronic obstructive pulmonary disease, unspecified; Z88.6 Allergy status to analgesic agent
CPT/HCPCS: 36415; 70491; 80053; 85025; 99284

== ENCOUNTER 2018-10-20 10:42 | Emergency (ER) | payer MEDICAID ==
--- NOTE | 2018-10-20 10:58 | ER Document Report ---
ED Neuro Symptoms/Deficit - General Chief Complaint: S/S of Possible Stroke Stated Complaint: HEADACHE Time Seen by Provider: 10/20/18 10:55 Primary Care Provider: CORRIE PUTNAM MD [NO LOCAL MD] - Follow up tomorrow YEIMY CARR PA [Primary Care Provider] - Follow up as needed Mode of Arrival: Ambulatory Information source: Patient Notes: Patient reports that around 830 this morning she developed left-sided headache and then developed blurred vision, nausea and numbness to the right upper extremity and right side of her tongue. Patient states that her blurred vision has since resolved at this time. Patient denies any head injury. Patient states that she does have a history of migraines in which she gets blurred vision symptoms, numbness and weakness to the extremities. Patient states that she gets very frequent migraines and has since the age of 11. Patient states that she will typically get several migraines a week. Patient states that this is typical presentation of her migraines. Patient denies being on any medications at this time to treat migraine symptoms, and is not followed by a neurologist at this time. Patient denies any chest pain dyspnea or vomiting at this time. Patient reports that headache pain started gradually. TRAVEL OUTSIDE OF THE [place] IN LAST 30 DAYS: No - HPI Patient complains to provider of: Paresthesia, Vision Changes, Weakness Onset: This morning Awoke with symptoms: No Duration: Better Quality of pain: Sharp Pain Level: 5 Loss of consciousness: No loss of consciousness Baseline Cognitive: Alert, oriented X 3 Baseline Gait: Walks w/o assistance Alert To: Name/Voice Patient Orientation: Person, Place, Time, Events New weakness: RUE Altered sensation: RUE Vision problem/glaucoma: No Associated symptoms: Headache, Nausea. denies: Chest pain, Back pain, Chills, Dizzy, Fever, Seizure, Short of breath, Vomiting Similar symptoms previously: Yes Recently seen / treated by doctor: No - Related Data Allergies/Adverse Reactions: acetaminophen [From NyQuil] Allergy (Verified 10/20/18 10:45) dextromethorphan [From NyQuil] Allergy (Verified 10/20/18 10:45) diphenhydramine [From Benadryl] Allergy (Verified 10/20/18 10:45) doxylamine [From NyQuil] Allergy (Verified 10/20/18 10:45) ketorolac [From Toradol] Allergy (Verified 10/20/18 10:45) pseudoephedrine [From NyQuil] Allergy (Verified 10/20/18 10:45) Past Medical History - General Information source: Patient - Social History Smoking Status: Current Every Day Smoker Smoking Education Provided: Yes Frequency of alcohol use: Occasional Drug Abuse: None Occupation: [employer] Family History: Reviewed & Not Pertinent Pulmonary Medical History: Reports: Hx COPD Neurological Medical History: Reports: Hx Migraine Renal/ Medical History: Denies: Hx Peritoneal Dialysis Musculoskeletal Medical History: Reports Hx Arthritis - Chronic neck pain Psychiatric Medical History: Reports: Hx Anxiety Past Surgical History: Reports: Hx Orthopedic Surgery - Immunizations Hx Diphtheria, Pertussis, Tetanus Vaccination: No Review of Systems - Review of Systems Constitutional: No symptoms reported. denies: Fever EENT: Blurred vision - Now resolved Cardiovascular: No symptoms reported. denies: Chest pain, Dizziness, Lightheaded Respiratory: No symptoms reported. denies: Cough, Short of breath Gastrointestinal: Nausea. denies: Abdominal pain, Diarrhea, Vomiting Genitourinary: No symptoms reported. denies: Dysuria Female Genitourinary: No symptoms reported. denies: Musculoskeletal: Neck pain - Chronic neck pain. denies: Back pain, Joint pain Skin: No symptoms reported Hematologic/Lymphatic: No symptoms reported Neurological/Psychological: Weakness - Right upper extremity, Headaches, Numbness - Right upper extremity, right side of tongue Physical Exam - Vital signs Vitals: Temp Pulse Resp BP Pulse Ox 98.0 F 100 14 129/80 H 96 10/20/18 10:47 10/20/18 10:47 10/20/18 10:47 10/20/18 10:47 10/20/18 10:47 - General General appearance: Appears well, Alert In distress: None - HEENT Head: Normocephalic. No: Atraumatic, Racoon's eyes, Tenderness Eyes: Normal Conjunctiva: Normal Extraocular movements intact: Yes Eyelashes: Normal Pupils: PERRL Nerve palsy: No Visual [place] normal: Yes Ears: Normal External canal: Normal Tympanic membrane: Normal Nasal: Normal Mouth/Lips: Normal Mucous membranes: Normal Pharynx: Normal Neck: Normal, Supple. No: Lymphadenopathy - Respiratory Respiratory status: No respiratory distress Chest status: Nontender Breath sounds: Normal. No: Rales, Rhonchi, Stridor, Wheezing Chest palpation: Normal - Cardiovascular Rhythm: Regular Heart sounds: S1 appreciated, S2 appreciated Murmur: No - Abdominal Inspection: Obese Distension: No distension Bowel sounds: Normal Tenderness: Nontender Organomegaly: No organomegaly - Back Back: Normal, Nontender. No: CVA tenderness - Extremities General upper extremity: Normal inspection, Normal ROM General lower extremity: Normal inspection, Normal ROM - Neurological Neuro grossly intact: Yes Cognition: Normal Jaspreet Coma Scale Eye Opening: Spontaneous [place] Coma Scale Verbal: Oriented [place] Coma Scale Motor: Obeys Commands Jaspreet Coma Scale Total: 15 Speech: Normal. No: Dysarthria Cranial nerves: Other - Altered sensation to right side of tongue. No: Facial palsy, Tongue deviation Cerebellar coordination: Normal, Heel-delgado, Finger-nose rhombey, Rapid alt. movements Motor strength normal: LUE, RUE, LLE. 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 No: Involuntary movements - Right lower extremity Sensory: Altered light touch - Altered sensation to right upper extremity and right side of face - Psychological Associated symptoms: Normal affect, Normal mood - Skin Skin Temperature: Warm Skin Moisture: Dry Skin Color: Normal Course - Re-evaluation Re-evalutation: 10/20/18 10:58 Patient is presently in CT scan. 10/20/18 11:08 Radiologist called stating that CT is negative for any acute stroke at this time. 10/20/18 11:17 Patient reports that numbness has resolved at this time. 10/20/18 11:[address] Calixto regarding patient presentation and diagnostic evaluation. Recommends MRI of the head at this time. 10/20/18 12:27 Patient denies any improvement of her headache pain although states that all of the numbness is resolved and the weak sensation in her extremities is resolved at this time. 10/20/18 14:00 Patient repeat NIH of 0 at this time. Patient reports all symptoms have completely resolved. 10/20/18 14:37 Patient continues with mild headache pain at this time. No evidence for stroke at this time. Patient states that she has had migraines with these symptoms in the past, and that this headache presented with typical features of migraine she has had in the past. Consulted with Dr. Calixto regarding patient presentation and diagnostic evaluation. Recommends discharge home with prescription for Compazine and outpatient follow-up with neurology. - Vital Signs Vital signs: Temp Pulse Resp BP Pulse Ox 98.0 F 100 14 129/80 H 96 10/20/18 10:47 10/20/18 10:47 10/20/18 10:47 10/20/18 10:47 10/20/18 10:47 - Laboratory Result Diagrams: 10/20/18 11:02 10/20/18 11:02 Laboratory results interpreted by me: 10/20/18 19:31 Labs- Entire Visit 10/20/18 10/20/18 10/20/18 11:02 11:02 11:02 WBC 7.4 RBC 4.46 Hgb 14.1 Hct 40.5 MCV 91 MCH 31.7 MCHC 34.8 RDW 14.1 H Plt Count 400 Seg Neutrophils % 51.4 Lymphocytes % 35.8 Monocytes % 7.6 Eosinophils % 4.3 Basophils % 0.9 Absolute Neutrophils 3.8 Absolute Lymphocytes 2.6 Absolute Monocytes 0.6 Absolute Eosinophils 0.3 Absolute Basophils 0.1 PT 12.1 INR 0.85 APTT 25.6 Sodium 136.0 L Potassium 4.1 Chloride 100 Carbon Dioxide 29 Anion Gap 7 BUN 6 L Creatinine 0.83 Est GFR ( Amer) > 60 Est GFR (Non-Af Amer) > 60 Glucose 86 Calcium 9.7 Total Bilirubin 0.2 Direct Bilirubin 0.2 Neonat Total Bilirubin Not Reportable Neonat Direct Bilirubin Not Reportable Neonat Indirect Bili Not Reportable AST 26 ALT 37 Alkaline Phosphatase 61 Creatine Kinase 50 CK-MB (CK-2) Troponin I Total Protein 7.2 Albumin 4.1 10/20/18 11:02 WBC RBC Hgb Hct MCV MCH MCHC RDW Plt Count Seg Neutrophils % Lymphocytes % Monocytes % Eosinophils % Basophils % Absolute Neutrophils Absolute Lymphocytes Absolute Monocytes Absolute Eosinophils Absolute Basophils PT INR APTT Sodium Potassium Chloride Carbon Dioxide Anion Gap BUN Creatinine Est GFR ( Amer) Est GFR (Non-Af Amer) Glucose Calcium Total Bilirubin Direct Bilirubin Neonat Total Bilirubin Neonat Direct Bilirubin Neonat Indirect Bili AST ALT Alkaline Phosphatase Creatine Kinase CK-MB (CK-2) < 0.22 Troponin I < 0.012 Total Protein Albumin - Diagnostic Test Radiology reviewed: Reports reviewed - EKG Interpretation by Me EKG shows normal: Sinus rhythm Rate: Normal Rhythm: PVC's Additional EKG results interpreted by me: 10/20/18 14:[address] elevation, no T wave inversion, QTC 433 ED NIH Stroke Scale - NIH Stroke Scale *: 1. NIH scale should be completed with appropriate accompanying assessment tools. *: 2. The NIH should reflect what the patient is capable of doing and should not be coached by the clinician. 1a. Level of Consciousness: 0=Alert;keenly responsive -: 1=Drowsy -: 2=Obtunded -: 3=Coma/unresponsive or reflex to noxious stimuli. 1a. Responses: 0 1b. Orientation Questions: a. What month is it? -: b. How old are you? -: 0=Answers both questions correctly. -: 1=Answers one question correctly or patient is intubated or has orotracheal trauma. -: 2=Answers neither question correctly. 1b. Responses: 0 1c. Response to commands: a. Open and close eyes? -: b. Buffing Wheel Raker and release hand? -: Credit is given despite weakness. Demonstration of task is permitted. Substitute command if hands cannot be used. -: 0=Performs both tasks correctly -: 1=Performs one task correctly -: 2=Performs neither task correctly 1c. Responses: 0 2. Gaze: Establish eye contact and instruct patient to "Follow my finger" -: 0=Normal -: 1=Partial gaze palsy. Gaze is abnormal in one or both eyes, but where forced deviation or total gaze paresis is not present. -: 2=Forced deviation or total gaze paresis. 2. Responses: 0 3. Visual [place]: Sees fingers in all four quadrants. -: 0=No visual loss. -: 1=Partial hemianopsia. -: 2=Complete hemianopsia. -: 3=Bilateral hemianopsia (including Cortical blindness) 3. Responses: 0 4. Facial Movement: Instruct patient to: -: a. Show me your teeth -: b. Raise your eyebrows -: c. Close your eyes -: d. Smile -: 0=Normal symmetrical movement -: 1=Minor paralysis (flattened nasolabial fold, asymmetry on smiling). -: 2=Partial paralysis (total or near total paralysis of lower face). -: 3=Complete paralysis of upper and lower face 4. Responses: 0 5. Motor functions (left arm): Alternate sides and extend each arm with palms down (90 degrees if sitting or 45 degrees for supine). -: 0=No drift;limb holds for full 10 seconds. -: 1=Drift; limb holds but drifts down before full 10 seconds, but does not hit bed. -: 2=Some effort against gravity; limb cannot get to or maintain position. -: 3=No effort against gravity; limb falls. -: 4=No movement. -: UN=Amputation, joint fusion, explain in comments. 5. Responses (left arm): 0 5. Motor Functions (right arm): Alternate sides and extend each arm with palms down (90 degrees if sitting or 45 degrees for supine). -: 0=No drift;limb holds for full 10 seconds. -: 1=Drift; limb holds but drifts down before full 10 seconds, but does not hit bed. -: 2=Some effort against gravity; limb cannot get to or maintain position. -: 3=No effort against gravity; limb falls. -: 4=No movement. -: UN=Amputation, joint fusion, explain in comments. 5. Responses (right arm): 0 6. Motor Functions (left leg): With patient lying supine, alternate sides and extend each leg (30 degrees always while supine). -: 0=No drift, leg holds position for full 5 seconds -: 1=Drift; leg falls before full 5 seconds but does not hit bed. -: 2=Some effort against gravity, leg falls to bed but some effort against gravity. -: 3=No effort against gravity, leg falls to bed immediately. -: 4=No movement. -: UN=Amputation, joint fusion; explain in comments. 6. Responses (left leg): 0 6. Motor Functions (right leg): With patient lying supine, alternate sides and extend each leg (30 degrees always while supine). -: 0=No drift, leg holds position for full 5 seconds -: 1=Drift; leg falls before full 5 seconds but does not hit bed. -: 2=Some effort against gravity, leg falls to bed but some effort against gravity. -: 3=No effort against gravity, leg falls to bed immediately. -: 4=No movement. -: UN=Amputation, joint fusion; explain in comments. 6. Responses (right leg): 1 7. Limb Ataxia: With eyes open instruct patient to: -: a. "Touch your finger to your nose". -: b. "Touch your heel to your delgado" -: 0=Absent -: 1=Present in one limb. -: 2=Present in two limbs. -: UN=Amputation or joint fusion; explain in comments. 7. Responses: 0 8. Sensory: Test sensation using pinprick or noxious stimuli. Test as many body parts as possible. -: 0=Normal;no sensory loss -: 1=Mile to moderate sensory loss (patient feels pin prick but is less sharp on affected side). -: 2=Severe or total sensory loss. 8. Responses: 0 9. Best Language: Instruct patient to: -: a. "Describe what you see in this picture." -: b. "Name the items in this picture." -: c. "Read these sentences." -: 0=No aphasia, normal -: 1=Mild to moderate aphasia. -: 2=Severe aphasia -: 3=Mute, global aphasia, no usable speech or auditory comprehension. 10. Articulation, Dysarthia: Instruct patient to: -: "Read these words" or "Repeat these words" -: 0=Normal -: 1=Mild to moderate; patient may slur some words but can be understood without difficulty. -: 2=Severe; patients speech so slurred as to be unintelligible in the absence of dysphasia. -: UN=Intubated or other physical barrier, explain in comments. 10. Responses: 0 11. Extinction or inattention: 0=No abnormality -: 1= Visual, tactile, auditory, spatial, or personal inattention or extinction to bilateral simulation in one or the sensory modalities. -: 2=Profound patrick-inattention or patrick-inattention to more than one modality; does not recognize own hand. 11. Responses: 0 Total Score: 1 Discharge - Discharge Clinical Impression: Migraine Qualifiers: Migraine type: unspecified Status migrainosus presence: without status migrainosus Intractability: not intractable Qualified Code(s): G43.909 - Migra ine, unspecified, not intractable, without status migrainosus Condition: Stable Disposition: HOME, SELF-CARE Instructions: Intravenous Compazine for Headaches ([facility]), Migraine Headache ([facility]) Additional Instructions: Return immediately for any new or worsening symptoms Followup with your primary care provider, call tomorrow to make a followup appointment Stay well-hydrated Follow-up with a neurologist for further evaluation of your migraine headaches. Prescriptions: Prochlorperazine Maleate [Compazine 10 mg Tablet] 10 mg PO ASDIR PRN #10 tablet PRN Reason: Forms: Return to Work Referrals: YEIMY CARR PA [Primary Care Provider] - Follow up as needed CORRIE PUTNAM MD [NO LOCAL MD] - Follow up tomorrow
--- NOTE | 2018-10-20 11:12 | RADIOLOGY REPORT (SQ) ---
EXAM DESCRIPTION: CT HEAD WITHOUT COMPLETED DATE/TIME: 10/20/2018 11:01 am REASON FOR STUDY: weakness and slurred speech COMPARISON: None. TECHNIQUE: Axial images acquired through the brain without intravenous contrast. Images reviewed wi th bone, brain and subdural windows. Additional sagittal and coronal reconstructions were generated. Images stored on PACS. All CT scanners at this facility use dose modulation, iterative reconstruction, and/or weight based d osing when appropriate to reduce radiation dose to as low as reasonably achievable (ALARA). [facility]: Dose Right [facility]: CareDose [facility]: Dose Right [facility]: Teradose 4D [facility]: [employer] RADIATION DOSE: CT Rad equipment meets quality standard of care and radiation dose reduction techniq ues were employed. CTDIvol: 53.2 mGy. DLP: 1017 mGy-cm. mGy. LIMITATIONS: None. FINDINGS: VENTRICLES: Normal size and contour. CEREBRUM: No masses. No hemorrhage. No midline shift. No evidence for acute infarction. Normal gra y/white matter differentiation. No areas of low density in the white matter. CEREBELLUM: No masses. No hemorrhage. No alteration of density. No evidence for acute infarction. EXTRAAXIAL SPACES: No fluid collections. No masses. ORBITS AND GLOBE: No intra- or extraconal masses. Normal contour of globe without masses. CALVARIUM: No fracture. PARANASAL SINUSES: There is a small retention cyst or polyp in the right maxillary sinus. SOFT TISSUES: No mass or hematoma. OTHER: No other significant finding. IMPRESSION: NORMAL BRAIN CT WITHOUT CONTRAST. EVIDENCE OF ACUTE STROKE: NO. COMMENT: Category of Critical Result: Pertinent positive or negative findings of the imaging study reported as a CRITICAL EXAM to NAVEED PIZARRO NP at11:05 on 10/20/2018. Category of Critical Exam: Code stroke. Quality ID # [id number]: Final reports with documentation of one or more dose reduction techniques (e.g., Au tomated exposure control, adjustment of the mA and/or kV according to patient size, use of iterative reconstruction technique) TECHNICAL DOCUMENTATION: JOB ID: [id number] [employer]- All Rights Reserved Reading location - IP/workstation name: [email or web address]
[2018-10-20 11:18] LABS: INTERNATIONAL RATION (INR) 0.85; PROTHROMBIN TIME 12.1 SEC (11.4-15.4)
[2018-10-20 11:19] LABS: ABSOLUTE BASOPHILS # (AUTO) 0.1 10^3/uL (0.0-0.2); ABSOLUTE EOSINOPHILS # (AUTO) 0.3 10^3/uL (0.0-0.6); ABSOLUTE LYMPHOCYTES (AUTO) 2.6 10^3/uL (0.5-4.7); ABSOLUTE MONOCYTES (AUTO) 0.6 10^3/uL (0.1-1.4); ABSOLUTE NEUT (AUTO) 3.8 10^3/uL (1.7-8.2); BASOPHILS % (AUTO) 0.9 % (0-2); EOSINOPHILS % (AUTO) 4.3 % (0-6); HEMATOCRIT 40.5 % (36.0-47.0); HEMOGLOBIN 14.1 g/dL (12.0-15.5); LYMPHOCYTES % (AUTO) 35.8 % (13-45); MEAN CORPUSCULAR HEMOGLOBIN 31.7 pg (27.0-33.4); MEAN CORPUSCULAR HGB CONC 34.8 g/dL (32.0-36.0); MEAN CORPUSCULAR VOLUME 91 fl (80-97); MONOCYTES % (AUTO) 7.6 % (3-13); PARTIAL THROMBOPLASTIN TIME 25.6 SEC (23.5-35.8); PLATELET COUNT 400 10^3/uL (150-450); RED BLOOD COUNT 4.46 10^6/uL (3.72-5.28); RED CELL DISTRIBUTION WIDTH 14.1 % (11.5-14.0); SEGMENTED NEUTROPHILS % (AUTO) 51.4 % (42-78); TOTAL CELLS COUNTED % (AUTO) 100 %; WHITE BLOOD COUNT 7.4 10^3/uL (4.0-10.5)
[2018-10-20] MEDS: ASPIRIN 81 MG TABLET, CHEWABLE PO ONE (11:25)
[2018-10-20] MEDS: PROCHLORPERAZINE EDISYLATE INJ 10 MG/2 ML VIAL IV ONE ×2 (11:25→13:49)
[2018-10-20] MEDS: NORMAL SALINE 1000 ML 1,000 ML IV ONE (11:26)
[2018-10-20 11:32] LABS: ALANINE AMINOTRANSFERASE 37 U/L (9-52); ALBUMIN 4.1 g/dL (3.5-5.0); ALKALINE PHOSPHATASE 61 U/L (38-126); ANION GAP 7 (5-19); ASPARTATE AMINO TRANSFERASE 26 U/L (14-36); BILIRUBIN,DIRECT 0.2 mg/dL (0.0-0.4); BILIRUBIN,TOTAL 0.2 mg/dL (0.2-1.3); BLOOD UREA NITROGEN 6 mg/dL (7-20); CALCIUM 9.7 mg/dL (8.4-10.2); CARBON DIOXIDE 29 mmol/L (22-30); CHLORIDE 100 mmol/L (98-107); CREATINE KINASE 50 U/L (30-135); GLUCOSE 86 mg/dL (75-110); POTASSIUM 4.1 mmol/L (3.6-5.0); TOTAL PROTEIN 7.2 g/dL (6.3-8.2)
--- NOTE | 2018-10-20 11:50 | RADIOLOGY REPORT (SQ) ---
EXAM DESCRIPTION: CHEST SINGLE VIEW COMPLETED DATE/TIME: 10/20/2018 11:39 am REASON FOR STUDY: GATES, tongue numbness COMPARISON: CT angio chest 03/10/2017 EXAM PARAMETERS: NUMBER OF VIEWS: One view. TECHNIQUE: Single frontal radiographic view of the chest acquired. RADIATION DOSE: NA LIMITATIONS: None. FINDINGS: LUNGS AND PLEURA: No opacities, masses or pneumothorax. No pleural effusion. MEDIASTINUM AND HILAR STRUCTURES: No masses. Contour normal. HEART AND VASCULAR STRUCTURES: Heart normal in size. Normal vasculature. BONES: No acute findings. HARDWARE: None in the chest. OTHER: No other significant finding. IMPRESSION: NO ACUTE RADIOGRAPHIC FINDING IN THE CHEST. TECHNICAL DOCUMENTATION: JOB ID: [id number] [employer]- All Rights Reserved Reading location - IP/workstation name: [email or web address]
[2018-10-20 11:51] LABS: CREATINE KINASE MB < 0.22 ng/mL (<4.55); TROPONIN I < 0.012 ng/mL
[2018-10-20] MEDS: LORAZEPAM INJ 2 MG/1 ML VIAL IV ONE (12:29)
--- NOTE | 2018-10-20 12:56 | EKG REPORT ---
SEVERITY:- BORDERLINE ECG - SINUS RHYTHM NONSPECIFIC ST-T CHANGES- INFERIOR LEADS , MILD : Confirmed by: Mendel Flaherty MD 20-Oct-2018 12:56:05
--- NOTE | 2018-10-20 13:22 | RADIOLOGY REPORT (SQ) ---
EXAM DESCRIPTION: MRI HEAD WITHOUT COMPLETED DATE/TIME: 10/20/2018 1:13 pm REASON FOR STUDY: GATES, r side numbness COMPARISON: None. TECHNIQUE: Multiplanar imaging includes non-contrasted T1, T2, FLAIR, and diffusion with ADC map seq uences. Images stored on PACS. LIMITATIONS: Metallic susceptibility artifact due to braces. FINDINGS: ANATOMY: No anomalies. Normal vascular flow voids. Pituitary fossa normal. CSF SPACES: Normal in size and contour. No hemorrhage. CEREBRUM: Sulci and gyri normal in size and contour. Normal white matter signal on FLAIR imaging. No evidence of hemorrhage, mass, or extraaxial fluid collection. POSTERIOR FOSSA: No signal alteration. No hemorrhage. No edema, masses or mass effect. Internal manuel tory canals, cerebello-pontine angles, mastoids normal. DIFFUSION IMAGING: Negative for acute or sub-acute infarction. ORBITS: No masses. Globes normal. PARANASAL SINUSES: No fluid levels. Mucosa normal. OTHER: No other significant finding. IMPRESSION: Examination is limited, particularly on diffusion-weighted sequences, by metallic suscep tibility artifact related to dental braces. Within this limitation, unremarkable MR examination of t he brain. No MR findings to explain headaches or numbness. EVIDENCE OF ACUTE STROKE: NO. TECHNICAL DOCUMENTATION: JOB ID: [id number] [employer]- All Rights Reserved Reading location - IP/workstation name: [email or web address]
[2018-10-20] MEDS: ACETAMINOPHEN 325 MG TABLET PO ONE ×2 (13:49→13:50)
[2018-10-20 14:51] VITALS: BP 111/73
== END 2018-10-20 14:51 | disposition home or self-care (01) ==
LOC: ER 10:42
DX: G43.909 Migraine, unspecified, not intractable, without status migrainosus (principal); H53.8 Other visual disturbances; R11.0 Nausea; R20.0 Anesthesia of skin; R53.1 Weakness; J44.9 Chronic obstructive pulmonary disease, unspecified
CPT/HCPCS: 36415; 70450; 70551; 71045; 80053; 82550; 82553; 84484; 85025; 85610; 85730; 93005; 93010; 96361; 96374; 96375; 96376; 99284; J0780; J2060; J7030

== ENCOUNTER 2019-01-17 20:46 | Emergency (ER) | payer MEDICAID ==
--- NOTE | 2019-01-17 21:00 | ER Document Report ---
ED Medical Screen (RME) - General Chief Complaint: Abdominal Pain Stated Complaint: LEFT LOWER QUADRANT PAIN/POSSIBLE SPIDER BITE Time Seen by Provider: 01/17/19 20:56 Primary Care Provider: YIEMY CARR PA [Primary Care Provider] - Follow up as needed Mode of Arrival: Ambulatory Information source: Patient Notes: Patient presents to the emergency department with left lower quad abdominal pain and possible brown recluse spider bite to her left thigh. Patient reports history of left lower quad abdominal pain for years. Reports this pain is lasted for the last 2 days. Reports she is had a colonoscopy is not sure if she has diverticulitis or colitis. No other complaints such as fever vomiting diarrhea. Patient reports brown recluse spider bite happened today. I have greeted and performed a rapid initial assessment of this patient. A comprehensive ED assessment and evaluation of the patient, analysis of test results and completion of the medical decision making process will be conducted by additional ED providers. Dictation of this chart was performed using voice recognition software; therefore, there may be some unintended grammatical errors. TRAVEL OUTSIDE OF THE [place] IN LAST 30 DAYS: No - Related Data Allergies/Adverse Reactions: acetaminophen [From NyQuil] Allergy (Verified 10/20/18 10:45) dextromethorphan [From NyQuil] Allergy (Verified 10/20/18 10:45) diphenhydramine [From Benadryl] Allergy (Verified 10/20/18 10:45) doxylamine [From NyQuil] Allergy (Verified 10/20/18 10:45) ketorolac [From Toradol] Allergy (Verified 10/20/18 10:45) pseudoephedrine [From NyQuil] Allergy (Verified 10/20/18 10:45) Past Medical History Pulmonary Medical History: Reports: Hx COPD Neurological Medical History: Reports: Hx Migraine Renal/ Medical History: Denies: Hx Peritoneal Dialysis Musculoskeltal Medical History: Reports Hx Arthritis - Chronic neck pain Psychiatric Medical History: Reports: Hx Anxiety Past Surgical History: Reports: Hx Orthopedic Surgery - Immunizations Hx Diphtheria, Pertussis, Tetanus Vaccination: No Physical Exam - Vital signs Vitals: Temp Pulse Resp BP Pulse Ox 98.3 F 111 H 16 131/96 H 98 01/17/19 20:55 01/17/19 20:55 01/17/19 20:55 01/17/19 20:55 01/17/19 20:55 Course - Vital Signs Vital signs: Temp Pulse Resp BP Pulse Ox 98.3 F 111 H 16 131/96 H 98 01/17/19 20:55 01/17/19 20:55 01/17/19 20:55 01/17/19 20:55 01/17/19 20:55 Doctor's Discharge - Discharge Referrals: YEIMY CARR PA [Primary Care Provider] - Follow up as needed
[2019-01-17 21:44] LABS: ABSOLUTE EOSINOPHILS # (AUTO) 0.3 10^3/uL (0.0-0.6); ABSOLUTE LYMPHOCYTES (AUTO) 2.7 10^3/uL (0.5-4.7); ABSOLUTE MONOCYTES (AUTO) 0.6 10^3/uL (0.1-1.4); ABSOLUTE NEUT (AUTO) 4.8 10^3/uL (1.7-8.2); BASOPHILS % (AUTO) 0.3 % (0-2); EOSINOPHILS % (AUTO) 3.5 % (0-6); HEMATOCRIT 38.6 % (36.0-47.0); HEMOGLOBIN 13.3 g/dL (12.0-15.5); LYMPHOCYTES % (AUTO) 32.2 % (13-45); MEAN CORPUSCULAR HEMOGLOBIN 31.6 pg (27.0-33.4); MEAN CORPUSCULAR HGB CONC 34.4 g/dL (32.0-36.0); MEAN CORPUSCULAR VOLUME 92 fl (80-97); MONOCYTES % (AUTO) 6.8 % (3-13); PLATELET COUNT 325 10^3/uL (150-450); RED BLOOD COUNT 4.21 10^6/uL (3.72-5.28); RED CELL DISTRIBUTION WIDTH 14.3 % (11.5-14.0); SEGMENTED NEUTROPHILS % (AUTO) 57.2 % (42-78); TOTAL CELLS COUNTED % (AUTO) 100 %; WHITE BLOOD COUNT 8.5 10^3/uL (4.0-10.5)
[2019-01-17 21:45] LABS: APPEARANCE,URINE SLIGHTLY-CLOUDY; BILIRUBIN,URINE NEGATIVE (NEGATIVE); COLOR,URINE YELLOW; GLUCOSE, URINE NEGATIVE (NEGATIVE); KETONES,URINE TRACE mg/dL (NEGATIVE); LEUKOCYTE ESTERASE,URINE NEGATIVE (NEGATIVE); NITRITE,URINE NEGATIVE (NEGATIVE); PROTEIN,URINE NEGATIVE (NEGATIVE); URINE SPECIFIC GRAVITY 1.016; UROBILINOGEN,URINE NEGATIVE mg/dL (<2.0)
[2019-01-17 21:56] LABS: ALANINE AMINOTRANSFERASE 31 U/L (9-52); ALBUMIN 4.5 g/dL (3.5-5.0); ALKALINE PHOSPHATASE 54 U/L (38-126); ANION GAP 9 (5-19); ASPARTATE AMINO TRANSFERASE 27 U/L (14-36); BILIRUBIN,DIRECT 0.2 mg/dL (0.0-0.4); BILIRUBIN,TOTAL 0.4 mg/dL (0.2-1.3); BLOOD UREA NITROGEN 10 mg/dL (7-20); CALCIUM 9.6 mg/dL (8.4-10.2); CARBON DIOXIDE 25 mmol/L (22-30); CHLORIDE 103 mmol/L (98-107); GLUCOSE 82 mg/dL (75-110); POTASSIUM 4.2 mmol/L (3.6-5.0); SODIUM 136.6 mmol/L (137-145); TOTAL PROTEIN 7.4 g/dL (6.3-8.2)
[2019-01-17] MEDS ORDERED: AMOXICILLIN TR/POT CLAVULANATE 500-125 MG TAB PO ONE (23:18)
[2019-01-17] MEDS ORDERED: METRONIDAZOLE 500 MG TABLET PO ONE (23:18)
--- NOTE | 2019-01-17 23:22 | ER Document Report ---
ED General - General Chief Complaint: Abdominal Pain Stated Complaint: LEFT LOWER QUADRANT PAIN/POSSIBLE SPIDER BITE Time Seen by Provider: 01/17/19 20:56 Primary Care Provider: BOY MARTINEZ PA-C [Primary Care Provider] - Follow up in 3-5 days Mode of Arrival: Ambulatory Notes: Patient is a 38-year-old female that presents to the emergency department for chief complaint of left lower quadrant abdominal pain and possible spider bite. Patient states she is been having left lower quadrant abdominal pain for a long time, has been on and off, but more recently the past 3 days has been worse, she describes as a sharp pain in that area, does not notice any significant diarrhea, nausea, vomiting, fevers or chills. She states she has had diverticulitis in the past, and is not sure if that that this is this time. She also complains of some vaginal itching, which she has been having for a few days now. She recently was treated with Diflucan for yeast infection. She denies having any dysuria, hematuria. She had a area in her left groin that she was worried may have been a spider bite, and did not want to turn into an abscess that she wanted this evaluated today as well, and causes her some discomfort, but is not causing her significant pain at this time. Overall she rates her pain as a 4 out of 10 describes her pain in her lower abdomen as a sharp stabbing pain. Past Medical History: COPD, GERD Past Surgical History: Cervical spine fusion Social History: Admits to smoking cigarettes, denies alcohol or drug use. Family History: Reviewed and noncontributory for presenting illness Allergies: Reviewed, see documented allergy list. REVIEW OF SYSTEMS: Other than noted above, the 12 point review of systems was reviewed with the patient and were negative, all pertinent findings are included in the HPI. PHYSICAL EXAMINATION: Vital signs reviewed, nursing noted reviewed. GENERAL: Well-appearing, well-nourished and in no acute distress. HEAD: Atraumatic, normocephalic. EYES: Eyes appear normal, extraocular movements intact, sclera anicteric, conjunctiva are normal. ENT: nares patent, oropharynx clear without exudates. Moist mucous membranes. NECK: Normal range of motion, supple without lymphadenopathy LUNGS: Breath sounds clear to auscultation bilaterally and equal. No wheezes rales or rhonchi. HEART: Regular rate and rhythm without murmurs ABDOMEN: Soft, mild left lower quadrant tenderness to palpation, normoactive bowel sounds. No rebound, guarding, or rigidity. No masses appreciated. EXTREMITIES: Nontender, good range of motion, no pitting or edema. NEUROLOGICAL: No focal neurological deficits. Moves all extremities spontaneously Motor and sensory grossly intact on exam. PSYCH: Normal mood, normal affect. SKIN: Warm, Dry, normal turgor, there is noted to be a small carbuncle in the patient's left groin, no active drainage, no fluctuance, or significant induration. TRAVEL OUTSIDE OF THE [place] IN LAST 30 DAYS: No - Related Data Allergies/Adverse Reactions: acetaminophen [From NyQuil] Allergy (Verified 10/20/18 10:45) dextromethorphan [From NyQuil] Allergy (Verified 10/20/18 10:45) diphenhydramine [From Benadryl] Allergy (Verified 10/20/18 10:45) doxylamine [From NyQuil] Allergy (Verified 10/20/18 10:45) ketorolac [From Toradol] Allergy (Verified 10/20/18 10:45) pseudoephedrine [From NyQuil] Allergy (Verified 10/20/18 10:45) Past Medical History - General Information source: Patient - Social History Smoking Status: Current Every Day Smoker Chew tobacco use (# tins/day): No Frequency of alcohol use: Social Drug Abuse: None Family History: Reviewed & Not Pertinent Patient has suicidal ideation: No Patient has homicidal ideation: No Pulmonary Medical History: Reports: Hx COPD Neurological Medical History: Reports: Hx Migraine Renal/ Medical History: Denies: Hx Peritoneal Dialysis Musculoskeletal Medical History: Reports Hx Arthritis - Chronic neck pain Psychiatric Medical History: Reports: Hx Anxiety Past Surgical History: Reports: Hx Abdominal Surgery - abd hernia, Hx Orthopedic Surgery - Immunizations Hx Diphtheria, Pertussis, Tetanus Vaccination: No Physical Exam - Vital signs Vitals: Temp Pulse Resp BP Pulse Ox 98.3 F 111 H 16 131/96 H 98 01/17/19 20:55 01/17/19 20:55 01/17/19 20:55 01/17/19 20:55 01/17/19 20:55 Course - Re-evaluation Re-evalutation: Patient seen and examined vital signs reviewed. Laboratory data and/or imaging were ordered as appropriate for the patient's presenting symptoms and complaint, with consideration of any critical or life threatening conditions that may be associated with their obtained history and exam as noted above. Results were reviewed when available and demonstrated unremarkable work-up, no leukocytosis, CMP was unremarkable as well as UA The patient was re-evaluated and was stable, patient likely has mild diverticulitis that she is had in the past, and clinically she is tender in that area, will treat with Augmentin and Flagyl which will also cover the minor skin infection the patient was noted to have on exam. Evaluation was most consistent with diverticulitis, carbuncle, advised follow-up with her primary care. Results were discussed with the patient at this point, after careful consideration I feel that that patient can be discharged from the emergency d epartment, the patient was educated treatments and reasons to return to the emergency department based on their presumed diagnosis as noted above, they were advised to followup with a primary care physician in 2-3 days. Patient was agreeable to plan of care. *Note is created using voice recognition software and may contain spelling, syntax or grammatical errors. Laboratory 01/17/19 01/17/19 01/17/19 21:12 21:12 21:12 WBC 8.5 RBC 4.21 Hgb 13.3 Hct 38.6 MCV 92 MCH 31.6 MCHC 34.4 RDW 14.3 H Plt Count 325 Seg Neutrophils % 57.2 Lymphocytes % 32.2 Monocytes % 6.8 Eosinophils % 3.5 Basophils % 0.3 Absolute Neutrophils 4.8 Absolute Lymphocytes 2.7 Absolute Monocytes 0.6 Absolute Eosinophils 0.3 Absolute Basophils 0.0 Sodium 136.6 L Potassium 4.2 Chloride 103 Carbon Dioxide 25 Anion Gap 9 BUN 10 Creatinine 0.92 Est GFR ( Amer) > 60 Est GFR (Non-Af Amer) > 60 Glucose 82 Calcium 9.6 Total Bilirubin 0.4 Direct Bilirubin 0.2 Neonat Total Bilirubin Not Reportable Neonat Direct Bilirubin Not Reportable Neonat Indirect Bili Not Reportable AST 27 ALT 31 Alkaline Phosphatase 54 Total Protein 7.4 Albumin 4.5 Urine Color YELLOW Urine Appearance SLIGHTLY-CLOUDY Urine pH 5.0 Ur Specific [place] 1.016 Urine Protein NEGATIVE Urine Glucose (UA) NEGATIVE Urine Ketones TRACE H Urine Blood NEGATIVE Urine Nitrite NEGATIVE Urine Bilirubin NEGATIVE Urine Urobilinogen NEGATIVE Ur Leukocyte Esterase NEGATIVE Urine WBC (Auto) 1 Urine RBC (Auto) 1 Urine Bacteria (Auto) 1+ Squamous Epi Cells Auto 4 Urine Mucus (Auto) RARE Urine Ascorbic Acid NEGATIVE Urine HCG, Qual NEGATIVE - Vital Signs Vital signs: Temp Pulse Resp BP Pulse Ox 98.1 F 87 16 124/80 99 01/17/19 23:59 01/17/19 23:59 01/17/19 23:59 01/17/19 23:59 01/17/19 23:59 - Laboratory Result Diagrams: 01/17/19 21:12 01/17/19 21:12 Laboratory results interpreted by me: 01/17/19 01/17/19 01/17/19 21:12 21:12 21:12 RDW 14.3 H Sodium 136.6 L Urine Ketones TRACE H Discharge - Discharge Clinical Impression: Diverticulitis, Carbuncle Condition: Stable Disposition: HOME, SELF-CARE Instructions: Diverticulitis ([facility]) Additional Instructions: Please complete the entire course of antibiotics as prescribed, over time this should help with your symptoms overall. Monitor for worsening pain, and when he finished the antibiotics, you can use increased fiber in your diet, or trying MiraLAX, to reduce any minor or mild constipation you may be having. May take Tylenol for pain, if your symptoms worsen, or not improving over the next 48 hours, do not hesitate to return to the emergency department. Prescriptions: Amox Tr/Potassium Clavulanate [Augmentin 875-125 Tablet] 1 tab PO BID 10 Days #20 tablet Metronidazole [Flagyl 500 mg Tablet] 500 mg PO Q8H #30 tablet Referrals: BOY MARTINEZ PA-C [Primary Care Provider] - Follow up in 3-5 days
[2019-01-18 00:01] VITALS: BP 124/80
== END 2019-01-18 | disposition home or self-care (01) ==
LOC: ER 20:46
DX: K57.92 Diverticulitis of intestine, part unspecified, without perforation or abscess without bleeding (principal); L02.234 Carbuncle of groin; R10.32 Left lower quadrant pain; F17.210 Nicotine dependence, cigarettes, uncomplicated; J44.9 Chronic obstructive pulmonary disease, unspecified
CPT/HCPCS: 99284; 36415; 85025; 81025; 80053; 81001; J3490 ×2

== ENCOUNTER → 2019-03-09 | Outpatient (CLI) | payer MEDICAID ==
--- NOTE | 2019-03-09 14:18 | RADIOLOGY REPORT (SQ) ---
EXAM DESCRIPTION: CT ABD/PELVIS WITH IV ORAL COMPLETED DATE/TIME: 03/09/2019 2:06 pm REASON FOR STUDY: R10.33 PERIUMBILICAL PAIN, R10.12 LEFT UPPER QUADRANT PAIN R10.33 PERIUMBILICAL P AIN R10.12 LEFT UPPER QUADRANT PAIN COMPARISON: None. TECHNIQUE: CT scan of the abdomen and pelvis performed using helical scanning technique with dynamic intravenous contrast injection. No oral contrast. Images reviewed with lung, soft tissue, and bone windows. Reconstructed coronal and sagittal MPR images reviewed. Delayed images for evaluation of the urinary system also acquired. All images stored on PACS. All CT scanners at this facility use dose modulation, iterative reconstruction, and/or weight based d osing when appropriate to reduce radiation dose to as low as reasonably achievable (ALARA). [facility]: Dose Right [facility]: CareDose [facility]: Dose Right [facility]: Teradose 4D [facility]: NumberFour CONTRAST TYPE AND DOSE: contrast/concentration: Isovue 350.00 mg/ml; Total Contrast Delivered: 100.0 ml; Total Saline Delivered: 72.0 ml RENAL FUNCTION: None required. The patient is less than 50 years old. RADIATION DOSE: CT Rad equipment meets quality standard of care and radiation dose reduction techniq ues were employed. CTDIvol: 13.0 - 15.0 mGy. DLP: 1480 mGy-cm.. LIMITATIONS: None. FINDINGS: LOWER CHEST: No significant findings. No nodules or infiltrates. LIVER: Normal size. No masses. No dilated ducts. SPLEEN: Normal size. No focal lesions. PANCREAS: No masses. No significant calcifications. No adjacent inflammation or peripancreatic fluid collections. Pancreatic duct not dilated. GALLBLADDER: No identified stones by CT criteria. No inflammatory changes to suggest cholecystitis. ADRENAL GLANDS: No significant masses or asymmetry. RIGHT KIDNEY AND URETER: No solid masses. No significant calcifications. No hydronephrosis or hyd roureter. LEFT KIDNEY AND URETER: Subcentimeter cortical hypodense lesion, likely cyst but difficult to charact erize secondary to size. No significant calcifications. No hydronephrosis or hydroureter. AORTA AND VESSELS: No aneurysm. No dissection. Renal arteries, SMA, celiac without stenosis. RETROPERITONEUM: No retroperitoneal adenopathy, hemorrhage or masses. BOWEL AND PERITONEAL CAVITY: No masses or inflammatory changes. No free fluid or peritoneal masses. APPENDIX: Normal. PELVIS: Unremarkable bladder. No mass. No free fluid. Bilateral ovarian follicles. Intrauterine d evice within the uterine canal. ABDOMINAL WALL: No masses. No hernias. BONES: No significant or acute findings. OTHER: No other significant finding. IMPRESSION: No evidence of acute intra-abdominal/ pelvic process or findings to explain patient's sy mptoms. TECHNICAL DOCUMENTATION: JOB ID: [id number] Quality ID # [id number]: Final reports with documentation of one or more dose reduction techniques (e.g., Au tomated exposure control, adjustment of the mA and/or kV according to patient size, use of iterative reconstruction technique) 2010 [employer]- All Rights Reserved Reading location - IP/workstation name: [email or web address]
== END ==
LOC: RAD 13:30
PROVIDERS: ATTEND Surgery
DX: R10.12 Left upper quadrant pain (principal); R10.33 Periumbilical pain
CPT/HCPCS: 74177

== ENCOUNTER → 2019-04-01 | Outpatient (CLI) | payer MEDICAID ==
--- NOTE | 2019-04-01 15:45 | RADIOLOGY REPORT (SQ) ---
EXAM DESCRIPTION: UPPER GI/SM BOWEL COMPLETED DATE/TIME: 04/01/2019 10:53 am REASON FOR STUDY: R93.5 ABN FINDINGS ON DX IMAGING OF ABD REGIONS, INC RETROPERITON R93.5 ABN FINDI NGS ON DX IMAGING OF ABD REGIONS, INC RETROPE COMPARISON: CT abdomen pelvis 03/09/2019. TECHNIQUE: Under fluoroscopic guidance, patient ingested effervescent granules followed by thick an d thin barium. Fluoroscopic spot images and routine radiographic images acquired and stored on PACS . Following evaluation of esophagus and stomach, additional barium administered with serial delayed ab dominal radiographs until colonic identification. Fluoroscopic images recorded of the terminal ileu m. 12 MM BARIUM TABLET GIVEN: Yes, tablet passed through the esophagus and into the stomach without hernan y. FLUOROSCOPY TIME: 6.4 minutes 22 images saved to PACS. LIMITATIONS: None. FINDINGS: NEUROMUSCULAR COORDINATION OF SWALLOW: Normal. No aspiration. ESOPHAGEAL MOTILITY: Normal peristalsis. No esophageal spasm. ESOPHAGEAL MUCOSA: Normal mucosa without masses or ulceration. GASTRO-ESOPHAGEAL JUNCTION: Moderately sized hiatal hernia seen. No gastroesophageal reflux. STOMACH: Normal without masses or ulcerations. GASTRIC OUTLET: No delay in emptying. Normal pylorus. DUODENAL BULB: Normal distention. No spasm or ulceration. DUODENUM: Mucosa normal. No extrinsic masses or malrotation. PROXIMAL SMALL BOWEL: Normal as visualized. JEJUNUM: Normal mucosal pattern. Initial images reveal a barium filled outpouching in the proximal j ejunum consistent with diverticulum. As study progresses, this outpouching increases in size. This is in the left upper quadrant area of interest seen on CT abdomen/pelvis of 03/09. Near the end of th e study there is decompression, however retained barium is seen within the diverticulum. ILEUM: Normal mucosal pattern. No dilatation, segmentation, strictures or masses. TERMINAL ILEUM AND ILEO-CECAL VALVE: Normal mucosal pattern without cobble-stoning or stricture. Nor mal compression. PROXIMAL COLON: Incompletely imaged. No abnormality. NON-GI TRACT STRUCTURES: No significant finding. OTHER: No other significant finding. IMPRESSION: Large barium filled outpouching, presumably diverticulum, seen in proximal jejunum,LUQ. Moderate-sized hiatal hernia. Otherwise unremarkable study. COMMENT: None Quality ID [id number]: Final reports for procedures using fluoroscopy that document radiation exposure satish ferdinand, or exposure time and number of fluorographic images (if radiation exposure indices are not avail able) TECHNICAL DOCUMENTATION: JOB ID: [id number] [employer]- All Rights Reserved Reading location - IP/workstation name: [email or web address]
== END ==
LOC: RAD 08:26
PROVIDERS: ATTEND Surgery
DX: K57.10 Diverticulosis of small intestine without perforation or abscess without bleeding (principal); R10.9 Unspecified abdominal pain; K44.9 Diaphragmatic hernia without obstruction or gangrene
CPT/HCPCS: 74249